=== PATIENT | male | born 1970 | race African-American/Black ===

== ENCOUNTER 2021-08-30 09:06 | Emergency (ER) | payer BC ==
[~2021-08-30] VITALS: Ht 167.6 cm; Wt 103.6 kg
[~2021-08-30 09:06] MED LIST: ASPIRIN E.C. 8181 MG PO; BRILINTA90 MG PO; LIPITOR 40MG TA40 MG PO; LOPRESSOR 225 MG/TAB PO; NITROSTAT0.4 MG/TAB SL; NORVASC 10MG10 MG PO; ZESTORETIC 25 M1 TAB PO; ZESTRIL 20MG TA20 MG PO; ZOCOR 20MG20 MG PO
[2021-08-30 09:12] VITALS: TEMP 98.2
[2021-08-30] MEDS ORDERED: NYAMYC100000 U/G TP ×3 (09:46→11:00)
[2021-08-30 10:16] LABS: COLLECTION METHOD CLEAN CATCH
[2021-08-30 10:17] VITALS: BP 138/90; PULSE 71
[2021-08-30 10:24] LABS: MUCOUS Present (NOT PRESENT); PH 7 (5-8); SQUAMOUS EPITHELIAL None Seen /hpf (0-10); URINE APPEARANCE Hazy (CLEAR/HAZY); URINE BACTERIA None Seen /hpf (NONE SEEN); URINE BILIRUBIN Negative (NEGATIVE); URINE BLOOD Negative (NEGATIVE); URINE COLOR Yellow (YELLOW); URINE GLUCOSE Negative (NEGATIVE); URINE KETONE Trace (NEGATIVE); URINE LEUKOCYTE ESTERASE Trace (NEGATIVE); URINE NITRATE Negative (NEGATIVE); URINE PROTEIN(semi-quant) 1+ (NEGATIVE); URINE RBC 0-2 /hpf (0-2)
== END 2021-08-30 10:19 | disposition home or self-care (01) ==
LOC: COL.ER 09:06
PROVIDERS: Emergency Medicine
DX: L29.3 Anogenital pruritus, unspecified (principal)